=== PATIENT | female | born 1960 | race Caucasian/White ===

== ENCOUNTER 2020-01-16 01:03 | Emergency (ER) | payer OTHER, SELFPAY ==
[2020-01-16 01:12] VITALS: BP 163/75; PULSE 76; RESP 20; TEMP 36.6; O2SAT 98
--- NOTE | 2020-01-16 01:14 | ED_ITS ---
HPI - Allergic Reaction General Chief complaint: Allergic Reaction Stated complaint: Swelling around lips, hives, states laryngitis Time Seen by Provider: 01/16/20 01:06 Source: patient and family Mode of arrival: Ambulatory Limitations: no limitations History of Present Illness HPI narrative: 59-year-old female nonsmoker with noncontributory medical history presents with her in the chief complaint of hives is on various parts of her upper body including her face and some swelling of her left upper lip. She denies any trouble swallowing or breathing. She denies any throat swelling or tongue swelling. She denies any obvious triggers such as new lotions, soaps, foods, pets or other. She has tried taking some Zyrtec at home without any relief. Her symptoms have been waxing and waning over the past 3 days. She has been out on boat with her for the duration. MD complaint: allergic reaction, hives and facial swelling Onset (ago): day(s) Exposure: unknown Severity: moderate Previous Allergic Reaction History: none Related Data Previous Rx's Medication Instructions Recorded epinephrine [EpiPen 2-Kevyn] 0.3 ml IM Q5-15M PRN #2 each 01/16/20 prednisone 10 mg PO DAILY #30 tab 01/16/20 Allergies Allergy/AdvReac Type Severity Reaction Status Date / Time No Known Drug Allergies Allergy Verified 01/16/20 01:46 Review of Systems Constitutional Constitutional: Denies chills, Denies fatigue, Denies fever(s), Denies frequent falls, Denies lethargy and Denies weakness Eyes Eyes: Denies change in vision, Denies eye discharge, Denies irritation and Denies loss of vision ENT Ears, Nose, Mouth, and Throat: Denies change in voice, Denies dizziness, Reports lip swelling, Denies neck pain, Denies sore throat and Denies throat swelling Cardiovascular Cardiovascular: Denies chest pain, Denies irregular heart rhythm, Denies lightheadedness, Denies palpitations, Denies dyspnea, Denies dyspnea on exertion and Denies orthopnea Respiratory Respiratory: Denies cough, Denies dyspnea, Denies dyspnea on exertion and Denies wheezing Gastrointestinal Gastrointestinal: Denies abdominal pain, Denies change in bowel habits, Denies diarrhea, Denies nausea and Denies vomiting Musculoskeletal Musculoskeletal: Denies neck pain and Denies numbness Integumentary/Breasts Skin/Breast: Denies pruritus, Denies erythema, Denies rash and Denies wounds Neurologic Neurologic: Denies behavioral changes, Denies confusion, Denies dizziness, Denies frequent falls, Denies loss of vision, Denies numbness and Denies weakness Psychiatric Psychiatric: Denies anxiety, Denies behavioral changes, Denies confusion, Denies depression, Denies homicidal ideation and Denies suicidal ideation Endocrine Endocrine: Denies fatigue, Denies flushing and Denies palpitations Hematologic/Lymphatic Hematologic/Lymphatic: Denies easy bruising Allergic/Immunologic Allergic/Immunologic: Reports urticaria, Reports lip swelling, Denies throat sw elling and Denies wheezing Patient History Social History Smoking Status: Never smoker Smoking Status: Never smoker alcohol intake frequency: 0-2 drinks per day Substance Use Type: does not use Exam Narrative Exam Narrative: GENERAL: [59] year old patient appears stated age. Well- nourished, well-developed patient, in mild distress. HEAD: Atraumatic. Normocephalic. EYES: Pupils equal round and reactive. Extraocular motions intact. No scleral icterus. No injection or drainage. ENT: Left upper lip swelling, no tongue or throat swelling. Nose without bleeding, purulent drainage. Throat without erythema, tonsillar hypertrophy or exudate. Airway patent. NECK: Trachea midline. Non tender CARDIOVASCULAR: Regular rate and rhythm without murmurs, gallops, or rubs. RESPIRATORY: Clear to auscultation. Breath sounds equal bilaterally. No wheezes, rales, or rhonchi. GASTROINTESTINAL: Abdomen soft, non-tender, nondistended. EXTREMITIES: No edema or joint tenderness. BACK: Nontender without deformity or crepitance. No flank tenderness. NEURO: AOx3. SKIN: Hives noted on arms abdomen, face, and neck. No rash or erythema of visible areas Initial Vital Signs Initial Vital Signs: Vital Signs Temperature 97.8 F 01/16/20 01:12 Pulse Rate 76 01/16/20 01:12 Respiratory Rate 20 01/16/20 01:12 Blood Pressure 163/75 H 01/16/20 01:12 Pulse Oximetry 98 01/16/20 01:12 Course Orders Ordered: Discontinued Medications Diphenhydramine HCl (Benadryl) 25 mg IV NOW ONE Stop: 01/16/20 01:16 Last Admin: 01/16/20 01:28 Dose: 25 mg Documented by: MORENITA Famotidine (Pepcid) 20 mg in 50 mls @ 200 mls/hr IV NOW ONE Stop: 01/16/20 01:29 Last Infusion: 01/16/20 01:45 Dose: 0 mls/hr Documented by: Admin: 01/16/20 01:28 Dose: 200 mls/hr Documented by: MORENITA Sodium Chloride (Normal Saline 0.9%) 1,000 mls @ 1,000 mls/hr IV BOLUS ONE Stop: 01/16/20 02:14 Last Admin: 01/16/20 01:29 Dose: 1,000 mls/hr Documented by: MORENITA Methylprednisolone (Solu-Medrol 125 Mg Vial) 125 mg IV NOW ONE Stop: 01/16/20 01:16 Last Admin: 01/16/20 01:28 Dose: 125 mg Documented by: MORENITA Vital Signs Vital signs: Vital Signs - 8 hr 01/16/20 01:12 Temperature 97.8 F Pulse Rate 76 Respiratory Rate 20 Blood Pressure 163/75 H Pulse Oximetry 98 MDM - Allergic Reaction MDM Narrative Medical decision making narrative: Significant improvement after above stated therapies. No obvious cause. Present for 3 days and no trouble swallowing or breathing. Hemodynamically stable. Return precautions given and questions answered to their apparent satisfaction. Discharge Plan Departure Patient Disposition: Home Clinical Impression: Allergic reaction Qualifiers: Encounter type: initial encounter Qualified Code(s): T78.40XA - Allergy, unspecified, initial encounter Instructions: DI for Hives Activity Restrictions/Additional Instructions: *You have been diagnosed with [allergic reaction to unknown trigger] *What to do: *Take medications as directed: Prescriptions have been electronically transmitted to [facility] in [place] at your request. Also, over the counter antihistamines such as benadryl and pepcid will help *Follow up with your primary care provider in 2-3 days, call for an appointment. Let them know you were seen in the Emergency Department and that we ask that you be seen in follow up *Return to ER if you should have any new, worsening or concerning symptoms Prescriptions: New prednisone 10 mg tablet 10 mg PO DAILY Qty: 30 RF: 0 epinephrine [EpiPen 2-Kevyn] 0.3 mg/0.3 mL auto-injector 0.3 ml IM Q5-15M PRN (Reason: anaphylaxis) Qty: 2 RF: 0
[2020-01-16] MEDS: methylPREDNISolone 125 MG/2 ML VIAL IV (01:28)
[2020-01-16] MEDS: FAMOTIDINE 20 MG/50 ML PIGGYBACK 200 MG IV (01:28)
[2020-01-16] MEDS: diphenhydrAMINE 50 MG/ML VIAL 25 MG IV (01:28)
[2020-01-16] MEDS: SODIUM CHLORIDE 0.9% 1,000 ML 1000 ML IV (01:29)
--- NOTE | 2020-01-16 01:55 | PC.NURSE ---
Pt has scattered rash on abdomen, back and upper thighs. Lips and eye lids are swollen. few hives seen on face. Pt is itching all over. pt has hoarse voice. Denies any difficulty breathing, able to manage her secretions.
== END 2020-01-16 06:50 | disposition home or self-care (01) ==
PROVIDERS: Emergency Provider Emergency Medicine
DX: T78.40XA Allergy, unspecified, initial encounter (principal); L50.0 Allergic urticaria; R22.0 Localized swelling, mass and lump, head
CPT/HCPCS: 36415; 96361; 96365; 96375; 99283; 99284; J1200; J2930